=== PATIENT | male | born 1990 | race Caucasian/White ===

== ENCOUNTER 2020-10-08 11:54 | Emergency (ER) | payer SELFPAY ==
[~2020-10-08] VITALS: Ht 177.8 cm; Wt 77.1 kg
--- NOTE | 2020-10-08 12:04 | NUR ---
BLOOD IN STOOL FOR MONTHS, WORRIED TODAY SINCE ITS BRIGHT RED. PATIENT A/OX4, CHANGED INTO A GOWN.
--- NOTE | 2020-10-08 12:10 | NUR ---
DR. HUERTAS AT BEDSIDE FOR EVAL.
--- NOTE | 2020-10-08 12:24 | NUR ---
PATIENT PROVIDED A CUP FOR STOOL SPECIMEN.
--- NOTE | 2020-10-08 13:00 | NUR ---
PATIENT IS TAKEN TO RADIOLOGY FOR CT.
[2020-10-08 13:05] LABS: BASOPHILS % (AUTO) 0.2 % (0.0-2.0); EOSINOPHILS % (AUTO) 0.6 % (0.0-6.0); HEMATOCRIT 47 % (39-51); HEMOGLOBIN 15.8 g/dL (13.5-17.5); LYMPHOCYTES % (AUTO) 29.3 % (20.0-44.0); MEAN CORPUSCULAR HGB CONC 34 g/dl (31.0-36.0); MEAN CORPUSCULAR VOLUME 95 fL (80-96); MONOCYTES % (AUTO) 8.5 % (2.0-12.0); NEUTROPHILS % (AUTO) 61.4 % (43.0-81.0); PLATELET COUNT (AUTO) 255 /CMM (150-450); RED BLOOD CELL COUNT(AUTO) 4.93 MIL/uL (4.5-6.0); WHITE BLOOD COUNT (AUTO) 6.8 K/uL (4.3-11.0)
[2020-10-08 13:06] LABS: MONOCYTES # (AUTO) 0.6 /CMM (0.1-1.30); NEUTROPHILS # (AUTO) 4.1 /CMM (1.8-8.9)
[2020-10-08 13:33] LABS: ALBUMIN 4.4 g/dL (3.4-5.0); BILIRUBIN,DIRECT 0.1 mg/dL (0.0-0.2); BILIRUBIN,TOTAL 0.5 mg/dL (0.2-1.0); CALCIUM, SERUM 9.4 mg/dL (8.5-10.1); CREATININE 1.2 mg/dL (0.6-1.3); POTASSIUM 4.3 mmol/L (3.5-5.1); TOTAL PROTEIN, SERUM 8.3 g/dL (6.4-8.2)
--- NOTE | 2020-10-08 14:00 | NUR ---
PT STS HE'S UNABLE TO PROVIDE STOOL SAMPLE.
--- NOTE | 2020-10-08 14:03 | NUR ---
PATIENT A/OX4, IN STABLE CONDITION. GAVE COPIES OF RESULTS. Patient discharged to home in stable condition. Written and verbal after care instructions given. Patient verbalizes understanding of instruction. Informed patient to follow up with PCP for a possible Colonoscopy if symptoms persist.
[2020-10-08 14:05] VITALS: BP 129/59
== END 2020-10-08 14:05 | disposition home or self-care (01) ==
LOC: ER 11:54
DX: K62.5 Hemorrhage of anus and rectum (principal); J45.909 Unspecified asthma, uncomplicated
CPT/HCPCS: 80048-TC; 80076-TC; 83690-TC; 85025-TC